=== PATIENT | female | born 1985 | race Caucasian/White ===

== ENCOUNTER 2017-02-26 08:57 | Emergency (ER) | payer MEDICAID ==
[~2017-02-26] VITALS: Ht 152.4 cm; Wt 69.8 kg
[2017-02-26 08:59] VITALS: BP 100/75
== END 2017-02-26 11:13 | disposition home or self-care (01) ==
LOC: ED 08:57
DX: L02.213 Cutaneous abscess of chest wall (principal)

== ENCOUNTER 2019-01-23 18:57 | Emergency (ER) | payer MEDICAID ==
[~2019-01-23] VITALS: Ht 162.6 cm; Wt 70.8 kg
[2019-01-23 19:05] VITALS: BP 110/79
== END 2019-01-23 20:10 | disposition home or self-care (01) ==
LOC: ED 18:57
DX: J06.9 Acute upper respiratory infection, unspecified (principal); R11.10 Vomiting, unspecified
CPT/HCPCS: J1885